=== PATIENT | female | born 1955 | race Asian ===

== ENCOUNTER 2021-06-22 19:36 | Emergency (ER) | payer OTHER ==
[~2021-06-22] VITALS: Ht 154.9 cm; Wt 59.0 kg
[2021-06-22 20:13] VITALS: BP 181/93
[2021-06-22] MEDS ORDERED: ACETAMINOPHEN 325MG TABLET PO ONE (21:15)
[2021-06-22] MEDS ORDERED: TRAM50TA3 MT (22:58)
[2021-06-22] MEDS ORDERED: CYCL10TA7 MT (23:30)
== END 2021-06-22 23:33 | disposition home or self-care (01) ==
LOC: ER 19:36
DX: S62.002A Unspecified fracture of navicular [scaphoid] bone of left wrist, initial encounter for closed fracture (principal); R42 Dizziness and giddiness; R51.9 Headache, unspecified; W01.0XXA Fall on same level from slipping, tripping and stumbling without subsequent striking against object, initial encounter; Y93.89 Activity, other specified; Y92.89 Other specified places as the place of occurrence of the external cause
CPT/HCPCS: 29105; 73110; 99283